=== PATIENT | male | born 2000 | race Caucasian/White ===

== ENCOUNTER → 2020-01-27 | Outpatient (CLI) | payer BC ==
--- NOTE | 2020-01-27 16:01 | Diagnostic Imaging Report ---
INDICATION: Left knee pain. TIME OF EXAM: 02:57 p.m. FINDINGS: Three views of the left knee were obtained. Alignment is normal. Joint spaces are well maintained. Articular surfaces are smooth. No fracture, dislocation, or effusion is seen. IMPRESSION: No acute bony abnormality is detected. Dictated by: Dictated on workstation # [id number]
== END ==
LOC: RAD FS 14:37
PROVIDERS: ATTEND Nurse Practitioner
DX: M25.562 Pain in left knee (principal)
CPT/HCPCS: 73562

== ENCOUNTER → 2020-05-21 | Outpatient (CLI) | payer BC ==
--- NOTE | 2020-05-21 11:20 | Diagnostic Imaging Report ---
Clinical indication: Patient with chest pain and discomfort and anxiety that comes and goes for 2 weeks now. Exam: Chest x-ray PA and lateral views. Comparisons: None. Findings: Lungs/pleura: Lungs are clear. There is no pneumothorax. There is no pleural effusion. Mediastinum: Unremarkable. Pulmonary vasculature: Unremarkable. Heart: Unremarkable. Bones/extrathoracic soft tissue: Unremarkable. Impression: There is no radiographic evidence of acute cardiopulmonary process. Dictated by: Dictated on workstation # [id number]
== END ==
LOC: RAD FS 10:13
PROVIDERS: ATTEND Nurse Practitioner Family
DX: F41.9 Anxiety disorder, unspecified (principal)
CPT/HCPCS: 71046

== ENCOUNTER 2021-02-01 02:24 | Emergency (ER) | payer BC ==
[~2021-02-01] VITALS: Ht 175.2 cm; Wt 85.1 kg
[2021-02-01 02:28] VITALS: BP 179/89
[2021-02-01] MEDS ORDERED: PENI500T PO (02:45)
[2021-02-01] MEDS ORDERED: HYDROcodone/APAP 5 MG/325 MG (LORTAB) TAB PO ONE (02:45)
[2021-02-01] MEDS ORDERED: ACHD5005 PO (02:45)
--- NOTE | 2021-02-01 02:45 | ED EENT ---
History of Present Illness General Chief Complaint: Dental Problems/Pain Stated Complaint: DENTAL PAIN Nursing Triage Note: Patient states that he has been having dental pain for a few days. Patient states that he is unable to sleep because of the pain. Patient rates his pain between a 4 and an 8. Patient last took Tylenol approximately 2-3 hours ago. Source: patient Exam Limitations: no limitations History of Present Illness Date Seen by Provider: Feb 01, 2021 Time Seen by Provider: 02:30 Initial Comments Patient with right lower canine pain starting 3 days ago. Pain is dull moderate to severe and continuous, worse with palpation and eating not relieved with Tylenol. Patient has not had opportunity to see a dentist. Timing/Duration: gradual Severity: moderate Location: dental Prearrival Treatment: other Modifying Factors: Improves With Other Associated Symptoms: other Allergies and Home Medications Allergies Coded Allergies: No Known Drug Allergies (Unverified , 02/01/21) Patient Home Medication List Home Medication List Reviewed: Yes Review of Systems Review of Systems Constitutional: see HPI Eyes: See HPI Ears: See HPI Nose: see HPI Mouth: see HPI Past Oqcmtma-Mypjlq-Buqxqv Hx Past Med/Social Hx: Reviewed Nursing Past Med/Soc Hx Patient Social History Alcohol Use: Denies Use Smoking Status: Never a Smoker Recent Infectious Disease Expo: No Past Medical History Surgeries: Yes Orthopedic Respiratory: No Cardiac: No Neurological: No Genitourinary: No Gastrointestinal: No Musculoskeletal: No Endocrine: No HEENT: No Cancer: No Psychosocial: No Integumentary: No Physical Exam Vital Signs Vital Signs - First Documented 02/01/21 02:28 Temp 36.2 Pulse 68 Resp 16 B/P (MAP) 179/89 (119) Pulse Ox 100 O2 Delivery Room Air Height, Weight, BMI Height: '" Weight: lbs. oz. kg; 27.00 BMI Method: General Appearance: moderate distress Nose: normal inspection Mouth/Throat: other (Right lower mandible/canine pain/tenderness. No soft tiss ue or gingival abscess) Neck: non-tender, full range of motion, supple Cardiovascular: normal peripheral pulses Respiratory: chest non-tender, lungs clear Progress/Results/Core Measures Results/Orders My Orders Orders - ELSIE WOODS DO Hydrocodone/Apap 5/325 Tablet (Lortab 5 (02/01/21 02:45) Vital Signs/I&O 02/01/21 02:28 Temp 36.2 Pulse 68 Resp 16 B/P (MAP) 179/89 (119) Pulse Ox 100 O2 Delivery Room Air Blood Pressure Mean: 119 Departure Communication (Admissions) Patient with mandible/dental pain/tenderness pain medication antibiotics prescription given. Patient instructed to follow-up with dentist of choice [facility] Impression Primary Impression: Pain due to dental caries Disposition: HOME, SELF-CARE Condition: Stable Departure-Patient Inst. Decision time for Depature: 02:44 Referrals: [facility] (PCP/Family) Primary Care Physician Patient Instructions: Dental Pain Add. Discharge Instructions: Please take ibuprofen for pain and newly prescribed medications as directed. Follow-up with dentist of choice [facility] All discharge instructions reviewed with patient and/or family. Voiced understanding. Scripts Penicillin V Potassium (Penicillin V Potassium) 500 Mg Tablet 500 MG PO QID, #40 TAB Prov: ELSIE WOODS DO 02/01/21 Hydrocodone/Acetaminophen (Hydrocodone-Acetamin 5-325 mg) 1 Each Tablet 1 TAB PO Q4H PRN for PAIN-MODERATE (5-7), #10 TAB Prov: ELSIE WOODS DO 02/01/21 ELSIE WOODS DO Feb 01, 2021 02:45
== END 2021-02-01 02:47 | disposition home or self-care (01) ==
LOC: EDUNIT# 02:24 → ER FS 02:27
DX: K02.9 Dental caries, unspecified (principal)
CPT/HCPCS: 99283

== ENCOUNTER 2021-08-05 21:50 | Emergency (ER) | payer BC ==
[~2021-08-05] VITALS: Ht 182 cm; Wt 77.0 kg
[~2021-08-05 21:50] MED LIST: ACHD5005 PO; PENI500T PO
[2021-08-05 21:55] VITALS: BP 142/96
[2021-08-05] MEDS ORDERED: IBUPROFEN 600 MG (MOTRIN) TAB PO ONE (22:15)
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
== END 2021-08-05 23:05 | disposition home or self-care (01) ==
LOC: EDUNIT# 21:50 → ER FS 21:52
DX: S09.90XA Unspecified injury of head, initial encounter (principal); S01.01XA Laceration without foreign body of scalp, initial encounter; W22.8XXA Striking against or struck by other objects, initial encounter
CPT/HCPCS: 70450